=== PATIENT | female | born 1935 | race Caucasian/White ===

== ENCOUNTER 2018-06-17 18:14 | Emergency (ER) | payer MEDICARE, OTHER ==
[~2018-06-17] VITALS: Ht 154.9 cm; Wt 72.7 kg
[2018-06-17 19:17] LABS: BASO % 0.4 % (0.0-1.0); EOS # 0.1 10^3/uL (0.0-0.50); EOS % 0.9 % (0.0-3.0); HEMATOCRIT 38.4 % (36.0-47.0); HEMOGLOBIN 12.8 g/dl (12.0-15.5); LYMPH # 0.8 10^3/uL (1.5-4.5); LYMPH % 10.1 % (24.0-44.0); MEAN CORPUSCULAR HEMOGLOBIN 31.3 pg (27.0-33.0); MEAN CORPUSCULAR HGB CONC 33.3 g/dl (32.0-36.5); MEAN CORPUSCULAR VOLUME 93.9 fl (80.0-96.0); MONO # 0.5 10^3/uL (0.0-0.8); MONO % 6.7 % (0.0-5.0); NEUTROPHILS # 6.6 10^3/uL (1.8-7.7); NEUTROPHILS % 81.4 % (36.0-66.0); PLATELET COUNT, AUTOMATED 258 10^3/uL (150-450); RED BLOOD COUNT 4.09 10^6/uL (4.00-5.40); WHITE BLOOD COUNT 8.1 10^3/uL (4.0-10.0)
[2018-06-17 19:27] LABS: BLOOD UREA NITROGEN 16 MG/DL (7-18); CALCIUM LEVEL 8.9 MG/DL (8.8-10.2); CARBON DIOXIDE LEVEL 28 MEQ/L (21-32); CHLORIDE LEVEL 99 MEQ/L (98-107); CPK CREATINE PHOSPHOKINASE 95 U/L (26-192); CREATININE FOR GFR 0.79 MG/DL (0.55-1.30); GLOMERULAR FILTRATION RATE > 60.0 (>32); GLUCOSE, FASTING 119 MG/DL (70-100); MB/CK RELATIVE INDEX 2.63 (< OR =4); POTASSIUM SERUM 4.3 MEQ/L (3.5-5.1); SODIUM LEVEL 135 MEQ/L (136-145); TROPONIN I < 0.02 NG/ML (< 0.10)
[2018-06-17] MEDS: NITROGLYCERIN 0.4 MG SUBL TABLET SL PRN ×2 (20:25→20:31)
--- NOTE | 2018-06-17 20:25 | REP ---
Chest one-view HISTORY: Chest pain Comparison: 08/05/2011 The lungs are clear. The heart is normal in size. The pulmonary vasculature is normal in appearance. Impression: No acute disease. Electronically Signed by Justice Burrell MD 06/17/2018 08:17 P
[2018-06-17 20:31] VITALS: BP 148/74
[2018-06-17] MEDS ORDERED: GI COCKTAIL 50ML BTL(HYOSCYAMINE/MAALOX/LIDOCAINE VISCOUS)(1:3:1) PO ONE (20:45)
[2018-06-17 21:18] LABS: CPK CREATINE PHOSPHOKINASE 82 U/L (26-192); MB/CK RELATIVE INDEX 2.32 (< OR =4); TROPONIN I < 0.02 NG/ML (< 0.10)
[2018-06-17 22:11] VITALS: BP 156/74
--- NOTE | 2018-06-18 08:02 | ECGEPIP ---
Stationary ECG Study [facility] - ED Test Date: 2018-06-17 Pat Name: MIRIAM MOISE Department: Room: - Gender: F [employer] Penc[employer] Dipper: kaye : 1935 Requested By: Donnell Tineo Order Number: [id number] Reading MD: Donnell Russo Measurements Intervals [place] Rate: 73 P: 52 DC: 191 QRS: -8 QRSD: 91 T: 36 QT: 391 QTc: 431 Interpretive Statements SINUS RHYTHM SIMILAR TO 08/05/11 Electronically Signed On 06-18-2018 8:02:24 EST by Donnell Russo
== END 2018-06-17 22:19 | disposition home or self-care (01) ==
LOC: M ED 18:14
DX: I10 Essential (primary) hypertension (principal); Z86.73 Personal history of transient ischemic attack (TIA), and cerebral infarction without residual deficits; Z88.5 Allergy status to narcotic agent

== ENCOUNTER 2018-07-28 17:34 | Emergency (ER) | payer MEDICARE, OTHER ==
[~2018-07-28] VITALS: Ht 154.9 cm; Wt 72.7 kg
[2018-07-28] MEDS ORDERED: GI COCKTAIL 50ML BTL(HYOSCYAMINE/MAALOX/LIDOCAINE VISCOUS)(1:3:1) PO ONE (18:00)
[2018-07-28 18:47] LABS: BASO % 0.3 % (0.0-1.0); EOS # 0.1 10^3/uL (0.0-0.50); HEMATOCRIT 37.7 % (36.0-47.0); HEMOGLOBIN 12.4 g/dl (12.0-15.5); LYMPH # 0.9 10^3/uL (1.5-4.5); LYMPH % 13.1 % (24.0-44.0); MEAN CORPUSCULAR HEMOGLOBIN 31.2 pg (27.0-33.0); MEAN CORPUSCULAR HGB CONC 32.9 g/dl (32.0-36.5); MEAN CORPUSCULAR VOLUME 94.7 fl (80.0-96.0); MONO # 0.6 10^3/uL (0.0-0.8); MONO % 7.6 % (0.0-5.0); NEUTROPHILS # 5.6 10^3/uL (1.8-7.7); NEUTROPHILS % 77.3 % (36.0-66.0); PLATELET COUNT, AUTOMATED 271 10^3/uL (150-450); RED BLOOD COUNT 3.98 10^6/uL (4.00-5.40); WHITE BLOOD COUNT 7.2 10^3/uL (4.0-10.0)
[2018-07-28 19:12] LABS: ALBUMIN 3.8 GM/DL (3.2-5.2); ALT/SGPT 20 U/L (12-78); BILIRUBIN,DIRECT < 0.1 MG/DL (0.0-0.2); BILIRUBIN,TOTAL 0.2 MG/DL (0.2-1.0); BLOOD UREA NITROGEN 18 MG/DL (7-18); C REACTIVE PROTEIN QUANTITATIV < 0.30 MG/DL (0.00-0.30); CARBON DIOXIDE LEVEL 29 MEQ/L (21-32); CHLORIDE LEVEL 99 MEQ/L (98-107); CPK CREATINE PHOSPHOKINASE 97 U/L (26-192); GLOMERULAR FILTRATION RATE > 60.0 (>32); GLUCOSE, FASTING 134 MG/DL (70-100); MB/CK RELATIVE INDEX 1.96 (< OR =4); POTASSIUM SERUM 3.9 MEQ/L (3.5-5.1); SODIUM LEVEL 134 MEQ/L (136-145); TOTAL PROTEIN 7.4 GM/DL (6.4-8.2); TROPONIN I < 0.02 NG/ML (< 0.10)
--- NOTE | 2018-07-28 19:45 | REP ---
Portable chest, 06:06 p.m., single AP view, the patient upright: Comparison is 06/17/2018. Lung walsh are clear. Cardiac size is normal for portable positioning. The patient is rotated. There is a large hiatal hernia. Impression: No acute cardiopulmonary findings. Large hiatal hernia. Electronically Signed by William Moya MD 07/28/2018 07:36 P
[2018-07-28] MEDS ORDERED: ISOVUE-370 76% 100ML VIAL (Q9967) As Ordered ONE (20:01)
[2018-07-28] MEDS ORDERED: NS 1,000 ML IV ONE (20:30)
--- NOTE | 2018-07-28 21:04 | REPVR ---
EXAM: CT Head Without Contrast EXAM DATE/TIME: 07/28/2018 8:04 PM CLINICAL HISTORY: 83 years old, female; Signs and symptoms; Altered mental status/memory loss; Confusion or disorientation TECHNIQUE: Axial computed tomography images of the head/brain without contrast. All CT scans at this facility use at least one of these dose optimization techniques: automated exposure control; mA and/or kV adjustment per patient size (includes targeted exams where dose is matched to clinical indication); or iterative reconstruction. COMPARISON: No relevant prior studies available. FINDINGS: Brain: There is mild age-related parenchymal volume loss. White matter changes are demonstrated in the subcortical, centrum semiovale and periventricular white matter consistent with small vessel white matter angiopathic gliosis. Ventricles: Normal. No ventriculomegaly. Bones/joints: Unremarkable. No acute fracture. Sinuses: Visualized sinuses are unremarkable. No acute sinusitis. Mastoid air cells: Visualized mastoid air cells are unremarkable. No mastoid effusion. Soft tissues: Unremarkable. IMPRESSION: There is mild age-related parenchymal volume loss. White matter changes are demonstrated in the subcortical, centrum semiovale and periventricular white matter consistent with small vessel white matter angiopathic gliosis. Electronically signed by: Jericho Ellis On 07/28/2018 21:03:54 PM
--- NOTE | 2018-07-28 21:07 | REPVR ---
EXAM: CT Angiography Chest With Contrast EXAM DATE/TIME: 07/28/2018 8:04 PM CLINICAL HISTORY: 83 years old, female; Pain; Chest pain; Type not specified TECHNIQUE: Axial computed tomographic angiography images of the chest with intravenous contrast using CT angiography protocol. All CT scans at this facility use at least one of these dose optimization techniques: automated exposure control; mA and/or kV adjustment per patient size (includes targeted exams where dose is matched to clinical indication); or iterative reconstruction. Coronal and sagittal reformatted images were created and reviewed. MIP reconstructed images were created and reviewed. CONTRAST: 100 ml of ISOVUE 370 administered intravenously. COMPARISON: CR PORTABLE CHEST X-RAY 07/28/2018 6:05 PM FINDINGS: Pulmonary arteries: No pulmonary embolus. Aorta: The aorta demonstrates mild atherosclerotic calcification. No aortic dissection or aneurysm. Lungs: Normal. No consolidation. No masses. Pleural space: Normal. No pneumothorax. No pleural effusion. Heart: There is mild atherosclerotic calcification of the coronary arteries. Mediastinum: Moderate sized retrocardiac hiatal hernia. Gallbladder and bile ducts: Cholelithiasis. Lymph nodes: Unremarkable. No enlarged lymph nodes. Bones/joints: The spine demonstrates moderate degenerative changes. Soft tissues: Lipoma left subscapularis muscle. IMPRESSION: 1. No aortic dissection or aneurysm. 2. Moderate sized retrocardiac hiatal hernia. 3. No pulmonary embolus. Electronically signed by: Jericho Ellis On 07/28/2018 21:07:33 PM
--- NOTE | 2018-07-28 21:11 | REPVR ---
EXAM: CT Abdomen and Pelvis With Contrast EXAM DATE/TIME: 07/28/2018 8:04 PM CLINICAL HISTORY: 83 years old, female; Pain; Abdominal pain; Generalized TECHNIQUE: Axial computed tomography images of the abdomen and pelvis with intravenous contrast. All CT scans at this facility use at least one of these dose optimization techniques: automated exposure control; mA and/or kV adjustment per patient size (includes targeted exams where dose is matched to clinical indication); or iterative reconstruction. Coronal and sagittal reformatted images were created and reviewed. CONTRAST: 100 ml of ISOVUE 370 administered intravenously. COMPARISON: No relevant prior studies available. FINDINGS: Lower thorax: Moderate retrocardiac hiatal hernia. ABDOMEN: Liver: Normal. No mass. Gallbladder and bile ducts: Multiple gallstones are present. Also noted is thickening of the gallbladder wall, findings which may indicate the presence of acute cholecystitis. Pancreas: There is diffuse pancreatic atrophy. Spleen: Normal. No splenomegaly. Adrenals: Normal. No mass. Kidneys and ureters: Left renal cyst measures 5.4 x 2.1 cm. Stomach and bowel: There is increased feces throughout the colon consistent with constipation. Appendix: No evidence of appendicitis. PELVIS: Bladder: Unremarkable as visualized. Reproductive: There has been a hysterectomy. ABDOMEN and PELVIS: Intraperitoneal space: Normal. No free air. No significant fluid collection. Bones/joints: The spine demonstrates mild degenerative changes. Mild anterolisthesis of L4 on L5. Disc space narrowing at L5-S1. 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 Soft tissues: Small umbilical hernia. Vasculature: Normal. No abdominal aortic aneurysm. Lymph nodes: Normal. No enlarged lymph nodes. IMPRESSION: 1. Moderate retrocardiac hiatal hernia. 2. Multiple gallstones are present. Also noted is thickening of the gallbladder wall, findings which may indicate the presence of acute cholecystitis. 3. There is diffuse pancreatic atrophy. 4. Left renal cyst measures 5.4 x 2.1 cm. 5. There is increased feces throughout the colon consistent with constipation. 6. There has been a hysterectomy. Electronically signed by: Jericho Ellis On 07/28/2018 21:11:35 PM
[2018-07-28] MEDS ORDERED: SUCR1SS PO (22:13)
[2018-07-28] MEDS ORDERED: PANT40TA3 PO (22:13)
[2018-07-28] MEDS ORDERED: KEFL500C17 PO (22:13)
[2018-07-28 22:29] VITALS: BP 140/86
[2018-07-28] MEDS ORDERED: CEPHALEXIN 500 MG CAP PO ONE (22:30)
--- NOTE | 2018-07-29 00:52 | ECGEPIP ---
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
== END 2018-07-28 22:30 | disposition home or self-care (01) ==
LOC: M ED 17:34
DX: K29.70 Gastritis, unspecified, without bleeding (principal); K20.9 Esophagitis, unspecified; N39.0 Urinary tract infection, site not specified; K44.9 Diaphragmatic hernia without obstruction or gangrene; I10 Essential (primary) hypertension; Z86.73 Personal history of transient ischemic attack (TIA), and cerebral infarction without residual deficits; Z88.5 Allergy status to narcotic agent
CPT/HCPCS: 36415; 70450; 71045; 71275; 74177; 80048; 80076; 81001; 82550; 82553; 84484; 85025; 86140; 87086; 93005; 93041; 94760; 99284; Q9967

== ENCOUNTER → 2018-09-12 | Outpatient (REF) | payer MEDICARE, OTHER ==
[~2018-09-12] MED LIST: ASPI1TAB PO; ASPI325T PO; ASPI325T25 PO; ASPI81TA24 PO; CARA1TAB6 PO; CEFD1CAP8 PO; ELIQ5TAB PO; GABA-1171 PO; GABA-843 PO; HYDR50TA70 PO; HYOS0.374 PO; KEFL500C17 PO; LEVO25TA5 PO; LISI-542 PO; PANT40TA3 PO; SUCR1SS PO; SUCR1TA PO; SYNT50TA PO; VENL75TA2 PO
== END ==
LOC: M LAB REF 13:09
PROVIDERS: ATTEND Surgery
DX: K80.20 Calculus of gallbladder without cholecystitis without obstruction (principal)

== ENCOUNTER → 2018-09-30 | Outpatient (CLI) | payer MEDICARE, OTHER ==
[~2018-09-30] MED LIST changes: +ACET1TAB55 PO; +ASPI-1 PO; +ASPI-255 PO; -ASPI1TAB PO; -ASPI325T PO; -ASPI325T25 PO; +ASPI81TA26 PO; +AUGM500T34 PO; +CONRAY-43 43% 50ML VIAL (Q9960) As Ordered ONE
--- NOTE | 2018-09-30 16:33 | REP ---
CHOLANGIOGRAM The procedure was performed under the direct supervision of Dr. Marcelino. The images were reviewed with Dr. Marcelino. The patient had a cholecystostomy tube placed on 09/01/2018. Approximately 10 ml of Conray 43 was injected into the existing cholecystostomy tube. There is filling of an irregularly shaped gallbladder. There is no contrast seen in the cystic or common ducts. Impression: Contrast is seen filling an irregularly-shaped gallbladder. There is no contrast seen in the cystic or common ducts. 0.3 minutes of fluoroscopy time was utilized for this procedure. Reviewed by MICHELLE Crowley 09/30/2018 04:16 P Electronically Signed by Moody Marcelino MD 09/30/2018 04:30 P
== END ==
LOC: M RADPRO 12:12
PROVIDERS: ATTEND Surgery
DX: K81.0 Acute cholecystitis (principal); Z98.890 Other specified postprocedural states
CPT/HCPCS: 47531; Q9960

== ENCOUNTER 2018-11-01 05:51 | Observation (INO) | payer MEDICARE, OTHER ==
[~2018-11-01] VITALS: Ht 154.9 cm; Wt 71.6 kg
[~2018-11-01 05:51] MED LIST changes: -ACET1TAB55 PO; -AUGM500T34 PO; -CONRAY-43 43% 50ML VIAL (Q9960) As Ordered ONE
[2018-11-01] MEDS ORDERED: ceFAZolin SOD 1 GM in D5W MINI-BAG PLUS 50 ML IV ONE (06:00)
[2018-11-01] MEDS ORDERED: LR 1,000 ML IV ONE (06:00)
[2018-11-01] MEDS ORDERED: ROCURONIUM BROMIDE 50 MG/5 ML VIAL As Ordered ONE (06:44)
[2018-11-01] MEDS ORDERED: SUGAMMADEX SODIUM 500 MG/5 ML VIAL (BRIDION) As Ordered ONE (06:44)
[2018-11-01] MEDS ORDERED: LIDOCAINE 2% INJ 100 MG/5 ML SDV (FOR ANES.) As Ordered ONE (06:44)
[2018-11-01] MEDS ORDERED: PROPOFOL 200 MG/20 ML VIAL As Ordered ONE (06:44)
[2018-11-01] MEDS ORDERED: dexameTHASONE 4 MG/ML 1ML VIAL (J1100) As Ordered ONE (06:45)
[2018-11-01] MEDS ORDERED: ONDANSETRON 4MG/2ML VIAL (J2405) As Ordered ONE (06:45)
[2018-11-01] MEDS ORDERED: fentaNYL 250 MCG/5 ML INJECTION (J3010) As Ordered ONE (06:50)
[2018-11-01] MEDS ORDERED: BUPIVACAINE/EPIN 0.25% 30 ML VIAL As Ordered ONE (07:11)
[2018-11-01] MEDS ORDERED: GLUCAGON FOR INJ 1 MG VIAL (J1610) As Ordered ONE (07:12)
[2018-11-01] MEDS ORDERED: CONRAY-60 60% 50ML VIAL (Q9961) As Ordered ONE (07:12)
[2018-11-01] MEDS ORDERED: MIDAZOLAM INJ 2 MG/2 ML VIAL (J2250) As Ordered ONE (07:24)
[2018-11-01] MEDS ORDERED: ACETAMINOPHEN 1000MG 100ML IV BTL (OFIRMEV) (J0131 PER 10MG) As Ordered ONE (07:47)
[2018-11-01] MEDS ORDERED: ePHEDrine SULFATE 25 MG/5 ML(5MG/ML) SYRINGE As Ordered ONE ×2 (07:51→08:28)
[2018-11-01] MEDS ORDERED: KETAMINE HCL 200 MG/20 ML VIAL As Ordered ONE (07:58)
[2018-11-01] MEDS ORDERED: diphenhydrAMINE INJ 50MG/ML VIAL (J1200) As Ordered ONE (07:58)
[2018-11-01] MEDS ORDERED: PHENYLephrine HCL 500 MCG/5 ML (100MCG/ML) SYRINGE (J2370) As Ordered ONE ×2 (08:04→09:00)
[2018-11-01] MEDS ORDERED: BACITRACIN OINT 30GM As Ordered ONE (09:26)
[2018-11-01] MEDS ORDERED: PERCOCET 5MG/325MG TAB PO PRN (10:00)
[2018-11-01] MEDS ORDERED: fentaNYL 100 MCG/2 ML INJECTION (J3010) IV PRN (10:00)
[2018-11-01] MEDS ORDERED: NORCO, ANEXSIA 5/325MG TABLET (HYDROcodone/ACETAMINOPHEN) PO PRN ×2 (10:00→21:45)
[2018-11-01] MEDS ORDERED: METOCLOPRAMIDE INJ 10MG/2ML VIAL (J2765) IV PRN (10:00)
[2018-11-01] MEDS ORDERED: ONDANSETRON 4MG/2ML VIAL (J2405) IV PRN ×3 (10:00→21:45)
[2018-11-01] MEDS ORDERED: LR 1,000 ML IV SCH ×2 (10:00)
--- NOTE | 2018-11-01 10:29 | RO ---
DATE OF PROCEDURE: 11/01/2018 PREOPERATIVE DIAGNOSIS: History of cholecystitis, cholecystostomy tube placement. POSTOPERATIVE DIAGNOSIS: History of cholecystitis, cholecystostomy tube placement. PROCEDURE: Laparoscopic cholecystectomy. SURGEON: Dr. Deon Montes [employer]: ANESTHESIA: General endotracheal anesthesia. ESTIMATED BLOOD LOSS: 100 mL. FLUIDS: Crystalloid. BRIEF PROCEDURE SUMMARY: The patient was brought to the operating room and was given general anesthesia. After adequate anesthesia and preoperative antibiotics were given, the patient was prepped and draped in a sterile fashion. Next, a supraumbilical incision was made with skin knife. Blunt dissection was carried down to fascia. Veress needle placed into the abdominal cavity and insufflated to 15 mm of pressure and a dilating 10 mm trocar was placed under direct visualization. An epigastric and two lateral trocars were placed and the cholecystostomy tube could be seen going through some omentum into the gallbladder itself. This was left in place, although adhesions in this right upper quadrant were taken down with the hook cautery. Then the atraumatic grasper was used to grasp the top of the gallbladder/omentum and retract it superiorly. There was colon that had worked its way up to the area, but fortunately this was able to be peeled away quite nicely without undue problems. There was a great deal of omentum that was adherent along the right lateral aspect of the gallbladder which had to be transected in this area and right at the level of the gallbladder. Eventually this was mobilized. There was some oozing from the omentum which was controlled with some Endo clips. Once this was taken down, multiple additional adhesions were taken down in the right upper quadrant and this was omentum to the gallbladder and duodenum to the neck of the gallbladder as well. Eventually once dissection continued down inferiorly adequately, what was obvious was that there was the appropriate narrowing after a palpable stone was appreciated in the neck of the gallbladder. Work in this area was slow, but gradually we identified the neck of the gallbladder quite nicely and cystic artery could be seen medially. Once further dissection was performed, a good window behind the neck of the gallbladder was created. After a great deal of diligence, this tapered down into what appeared to be the cystic duct. No branches were coming off. Then I dissected up further onto the cystic plate area revealing no additional branches. Because of the location of the cystic artery and it medially and a little bit more superiorly on the neck gallbladder this was far enough away that I felt that I could transect the cystic duct and then be better able to visualize the cystic artery and dissect off surrounding tissue. Eventually at this point the cystic duct was clipped proximally and distally and transected. The gallbladder then was taken from the gallbladder bed using electrocautery. The gallbladder wall was extremely thickened and the gallbladder wall was fused to the liver bed itself. In this manner, after clipping the cystic artery, the gallbladder was entered. There was some turbid fluid which was aspirated out, removed and it was mostly mucus. Then multiple stones were seen and aspirated out with the suction device. Later on in the case, all visible stones were suctioned and removed. In any case, after opening up the gallbladder itself, it was felt that more trauma would occur to the liver bed than was necessary if I tried to develop a plane in the liver bed. Thus, the anterior two thirds of the gallbladder were removed in the posterior portion which revealed a somewhat intrahepatic gallbladder was left in place. The mucosa in this area was treated with electrocautery. The right upper quadrant was copiously irrigated until clear and all stones. The cystic duct clips were intact. The cystic artery clips were intact. The gallbladder had been placed in EndoCatch bag and brought out through the umbilicus. Once again the right upper quadrant was copiously irrigated additionally and revealed a clean dry area with no bleeding, no bile leak and overall no additional stones. The trocars were all removed under direct visualization. #0 Vicryl was used to close the fascia at the umbilicus. All incisions were closed with #4-0 Vicryl. Steri-Strips and dry sterile dressing was applied. The patient was awakened from anesthesia, extubated, and brought to the recovery room awake, alert and hemodynamic stable. Sponge and needle counts were correct times two.
[2018-11-01 21:09] VITALS: BP 154/69
[2018-11-01] MEDS ORDERED: ACETAMINOPHEN TAB 650MG DOSE (2X325MG) PO PRN (21:45)
[2018-11-01] MEDS ORDERED: ERTAPENEM SODIUM 1 GM in NS MINI-BAG PLUS 50 ML IV ONE (22:15)
[2018-11-01] MEDS: VENLAFAXINE 37.5 MG TAB PO SCH (22:58)
[2018-11-01] MEDS: HYOSCYAMINE SULFATE 0.125 MG SUBL TABLET PO SCH (22:58)
[2018-11-01] MEDS: hydrOXYzine 50 MG TAB PO SCH (22:58)
[2018-11-01] MEDS: GABAPENTIN 300 MG CAP PO SCH (22:59)
[2018-11-02] VITALS (8 sets, daily range): BP systolic 83–146; BP diastolic 45–67
[2018-11-02] MEDS: LEVOTHYROXINE 50MCG TABLET (0.05MG) PO SCH (05:32)
[2018-11-02] MEDS ORDERED: AUGM500T34 PO (08:47)
[2018-11-02] MEDS ORDERED: ACET1TAB55 PO (08:47)
[2018-11-02] MEDS: SIMETHICONE 80 MG CHEW TAB PO SCH ×4 (09:00→20:42)
[2018-11-02] MEDS: LISINOPRIL 5 MG TAB PO SCH (09:00)
[2018-11-02] MEDS: GABAPENTIN 300 MG CAP PO SCH ×3 (09:03→20:42)
[2018-11-02] MEDS: HYOSCYAMINE SULFATE 0.125 MG SUBL TABLET PO SCH ×2 (09:04→20:43)
[2018-11-02] MEDS: PANTOPRAZOLE 40MG TAB (PROTONIX) PO SCH (09:04)
[2018-11-02] MEDS: VENLAFAXINE 37.5 MG TAB PO SCH ×2 (09:04→20:43)
[2018-11-02 09:46] LABS: HEMATOCRIT 32.4 % (36.0-47.0); HEMOGLOBIN 10.9 g/dl (12.0-15.5); MEAN CORPUSCULAR HEMOGLOBIN 31.3 pg (27.0-33.0); MEAN CORPUSCULAR HGB CONC 33.6 g/dl (32.0-36.5); MEAN CORPUSCULAR VOLUME 93.1 fl (80.0-96.0); PLATELET COUNT, AUTOMATED 220 10^3/uL (150-450); RED BLOOD COUNT 3.48 10^6/uL (4.00-5.40); WHITE BLOOD COUNT 9.2 10^3/uL (4.0-10.0)
[2018-11-02] MEDS ORDERED: SENNA 8.6 MG TAB (SENOKOT) PO ONE (10:00)
[2018-11-02] MEDS: DOCUSATE SODIUM 100 MG CAP PO SCH ×2 (11:54→20:43)
[2018-11-02] MEDS: PIPERACILLIN/TAZOBACTAM SOD 3.375 GM in D5W MINI-BAG PLUS 50 ML IV SCH ×2 (17:13→21:17)
[2018-11-02] MEDS: hydrOXYzine 50 MG TAB PO SCH (20:43)
[2018-11-03] MEDS: PIPERACILLIN/TAZOBACTAM SOD 3.375 GM in D5W MINI-BAG PLUS 50 ML IV SCH ×4 (04:16→21:54)
[2018-11-03] MEDS: LEVOTHYROXINE 50MCG TABLET (0.05MG) PO SCH (05:22)
[2018-11-03 06:00] VITALS: BP 145/69
[2018-11-03 06:16] LABS: HEMATOCRIT 33.6 % (36.0-47.0); HEMOGLOBIN 11.1 g/dl (12.0-15.5); MEAN CORPUSCULAR HEMOGLOBIN 30.8 pg (27.0-33.0); MEAN CORPUSCULAR VOLUME 93.3 fl (80.0-96.0); PLATELET COUNT, AUTOMATED 231 10^3/uL (150-450); WHITE BLOOD COUNT 8.9 10^3/uL (4.0-10.0)
[2018-11-03 08:44] LABS: ALBUMIN 2.8 GM/DL (3.2-5.2); ALT/SGPT 22 U/L (12-78); BILIRUBIN,TOTAL 0.8 MG/DL (0.2-1.0); BLOOD UREA NITROGEN 13 MG/DL (7-18); CALCIUM LEVEL 8.6 MG/DL (8.8-10.2); CARBON DIOXIDE LEVEL 30 MEQ/L (21-32); CHLORIDE LEVEL 98 MEQ/L (98-107); GLOMERULAR FILTRATION RATE > 60.0 (>32); GLUCOSE, FASTING 101 MG/DL (70-100); MAGNESIUM LEVEL 1.7 MG/DL (1.8-2.4); POTASSIUM SERUM 3.8 MEQ/L (3.5-5.1); SODIUM LEVEL 133 MEQ/L (136-145); TOTAL PROTEIN 5.7 GM/DL (6.4-8.2)
--- NOTE | 2018-11-03 09:48 | IPN ---
DATE: 11/02/2018 The patient had undergone a laparoscopic cholecystectomy yesterday and actually did well, considering how terrible the gallbladder looked and overall the patient tolerated the procedure relatively well but postoperatively she was relatively sedated and she needed to spend the night with us this morning she is still rather sedated and this is similar to what she was well after she had her sepsis episode several months ago when she had the cholecystostomy tube placed. Her blood pressure is low but on the low side. She has a low grade temperature and thus we will and thus we checked a white count which appeared normal and over the morning her blood pressure came up quite nicely. I saw her later in the day several times and she seems to be coming out of the fog a little bit but not completely resolved at this time. I do feel that she needs to spend the night with us. PHYSICAL EXAMINATION: Her lungs are clear anteriorly although diminished at the bases bilaterally without significant wheezes or rhonchi. Abdomen is softly distended, tympanitic in the epigastric area but no evidence of peritoneal signs and her incisions look good. The Franck-Yip drain site / cholecystostomy tube site has a Band-Aid over the place and there is no evidence of cellulitis around this area. IMPRESSION AND PLAN 1. Patient's blood pressure is low I anticipate this is most likely secondary to poor by mouth intake overnight and her blood pressure medications. We held a blood pressure medication and she is resolving this. Anticipate will probably have to restart her blood pressure medication tomorrow as she increase her by mouth intake. 2. Mental status changes seems to be slowly improving. Will see how she is doing tomorrow morning if it is better than this might be anesthesia related. I anticipate that and then we can discharge him home. Her temperature given that it is a low grade temperature and not surprised with the inflammatory process associated with the gallbladder intraoperatively. We also cauterized the gallbladder bed which can contribute to some inflammatory changes. However without a significant white count elevation I anticipate this is mostly inflammatory. Will recheck her CBC tomorrow morning. Otherwise will keep her for the night and we will continue observing her at this point.
[2018-11-03] MEDS: VENLAFAXINE 37.5 MG TAB PO SCH ×2 (10:02→20:36)
[2018-11-03] MEDS: DOCUSATE SODIUM 100 MG CAP PO SCH ×2 (10:02→20:36)
[2018-11-03] MEDS: HYOSCYAMINE SULFATE 0.125 MG SUBL TABLET PO SCH ×2 (10:03→20:35)
[2018-11-03] MEDS: GABAPENTIN 300 MG CAP PO SCH ×3 (10:03→20:37)
[2018-11-03] MEDS: PANTOPRAZOLE 40MG TAB (PROTONIX) PO SCH (10:03)
[2018-11-03] MEDS: SIMETHICONE 80 MG CHEW TAB PO SCH ×4 (10:03→20:36)
--- NOTE | 2018-11-03 10:04 | REP ---
Clinical: Fever. Technique: Upright view of the chest with supine and upright views of the abdomen and pelvis. Findings: Frontal view of the chest demonstrates bibasilar atelectasis (right greater than left) and right pleural effusion. No free air below diaphragm to suspect pneumoperitoneum. Supine and upright views of the abdomen and pelvis demonstrate relatively nonspecific bowel gas pattern without obstruction or perforation. Evidence for prior cholecystectomy noted. Skeletal structures demonstrate osteopenia and degenerative changes. Impression: 1. Bibasilar atelectasis (right greater left) and right pleural effusion suggested. 2. Nonspecific bowel gas pattern. Electronically Signed by Jase Pompa MD 11/03/2018 09:56 A
[2018-11-03] MEDS: LISINOPRIL 5 MG TAB PO SCH (10:05)
[2018-11-03] MEDS: MAG SULF 1GM/100ML (MAG RUN) 1 GM in APPROPRIATE DILUENT 1 EA IV SCH ×2 (11:22→12:46)
--- NOTE | 2018-11-03 13:44 | HPEPDOC ---
General Date of Admission Date of Service: November 03, 2018 Chief Complaint The patient is a 83-year-old female admitted with a reason for visit of Symptomatic Gallstones. Source: Patient, Family Exam Limitations: Clinical conditions Severity: Mild Associated Symptoms: Denies Symptoms History of Present Illness Pt is a 83 yo female who has PMH of HTN, hyperlipidemia, bilateral pulmonary embolism, and cholecystitis s/p percutaneous drainage presented to [facility] with discomfort around the percutaneous drainage tube site [facility] and underwent laparoscopic cholecystectomy 2 days ago, and it was noted that pt immediately developed confusion. Pt's reported that at baseline she has no confusion and is A&OX3; reported that she has been progressively improving in mental status. Pt had initial cholecystitis a few months ago and had percutaneous drainage tube placement, and there was also confusion after the procedure as well. Pt has been walking with the walker as at baseline. 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 Home Medications Scheduled Amoxicillin/Potassium Clav (Augmentin 500-125 Tablet) 1 Each Tablet, 1 TAB PO BID Aspirin (Aspirin EC) 81 Mg Tab, 81 MG PO DAILY, (Reported) Gabapentin (Gabapentin) 300 Mg Cap, 300 MG PO TID, (Reported) Hydroxyzine HCl (Hydroxyzine HCl) 50 Mg Tab, 50 MG PO QPM, (Reported) TAKES AT DINNERTIME Hyoscyamine Sulfate (Hyoscyamine Sulfate ER) 0.375 Mg Tab, 0.375 MG PO BID, (Reported) Levothyroxine Sodium (Synthroid) 50 Mcg Tab, 50 MCG PO DAILY, (Reported) Lisinopril (Lisinopril) 5 Mg Tab, 5 MG PO DAILY, (Reported) Venlafaxine HCl (Venlafaxine HCl) 75 Mg Tab, 75 MG PO BID, (Reported) Scheduled PRN Acetaminophen (Acetaminophen) 325 Mg Tablet, 650 MG PO Q6HP PRN for PAIN Allergies Coded Allergies: clarithromycin (Verified Adverse Reaction, Intermediate, NAUSEA.VOMITING DIARRHEA, 11/01/18) FROM PCP [facility] codeine (Verified Adverse Reaction, Intermediate, vomiting, 11/01/18) Past Medical History Medical History HTN Hyperlipidemia Recurrent UTI B/l PE Cholecystitis Surgical History Appendectomy Shoulder surgery Social History * Smoker: Denies Alcohol: Denies Drugs: denies A-FIB/CHADSVASC A-FIB History Current/History of A-Fib/PAF?: No Review of Systems Constitutional: Reports: Fever; Denies: Chills Pulmonary: Denies: Dyspnea Cardiovascular: Denies: Chest Pain, Palpitations Gastrointestinal: Denies: Nausea, Vomiting, Abdominal Pain, Diarrhea, Hematochezia Genitourinary: Denies: Retention Neurological: Reports: Confusion, Other Symptoms (slurred speech which seems to be slightly worse compared to baseline); Denies: Numbness Psych: Reports: Other Psych (no agitation); Denies: Anger Physical Examination General Exam: Positive: Alert, No Acute Distress Eye Exam: Positive: Conjunctiva & lids normal; Negative: Sclera icteric ENT Exam: Positive: Atraumatic, Mucous membr. moist/pink Neck Exam: Positive: Supple Chest Exam: Positive: Clear to auscultation, Normal air movement; Negative: Rales, Rhonchi, Wheezing Heart Exam: Positive: Rate Normal, Regular Rhythm, Normal S1, Normal S2; Negative: Murmurs Abdomen Exam: Positive: Normal bowel sounds, Soft; Negative: Tenderness Skin Exam: Positive: Nl turgor and temperature Neuro Exam: Positive: Normal Speech (mild-mod slurred speech), Strength at 5/5 X4 ext, Cranial Nerves 3-12 NL Psych Exam: Positive: Other (A&O to name only); Negative: Oriented x 3 Vital Signs Vital Signs Date Time Temp Pulse Resp B/P (MAP) Pulse Ox O2 Delivery O2 Flow Rate FiO2 11/03/18 10:05 128/69 11/03/18 06:00 100.6 89 16 93 11/01/18 10:15 4 Laboratory Data Labs 24H Laboratory Tests 2 11/03/18 05:27: Anion Gap 5L, Glomerular Filtration Rate > 60.0, Blood Urea Nitrogen 13, Creatinine 0.80, Sodium Level 133L, Potassium Level 3.8, Chloride Level 98, Carbon Dioxide Level 30, Calcium Level 8.6L, Aspartate Amino Transf (AST/SGOT) 37, Alanine Aminotransferase (ALT/SGPT) 22, Alkaline Phosphatase 90, Total Bilirubin 0.8, Total Protein 5.7L, Albumin 2.8L, Magnesium Level 1.7L, Albumin/Globulin Ratio 0.97L 11/03/18 05:30: Nucleated Red Blood Cells % (auto) 0.0 11/03/18 08:28: Lactic Acid Level 0.8 11/03/18 08:35: CBC/BMP Laboratory Tests 11/03/18 05:27 Calcium Level 8.6 L, Aspartate Amino Transf (AST/SGOT) 37, Alanine Aminotransferase (ALT/SGPT) 22, Alkaline Phosphatase 90, Total Bilirubin 0.8, Total Protein 5.7 L, Albumin 2.8 L 11/03/18 05:30 Red Blood Count 3.60 L, Mean Corpuscular Volume 93.3, Mean Corpuscular Hemoglobin 30.8, Mean Corpuscular Hemoglobin Concent 33.0, Red Cell Distribution Width 13.4 Microbiology Microbiology 11/03/18 Blood Culture, Received Pending 11/03/18 Blood Culture, Received Pending DAVE PALM DO November 03, 2018 13:43
[2018-11-03 14:00] VITALS: BP 129/67
--- NOTE | 2018-11-03 14:23 | CR.PDOC ---
General Date of Consultation: November 03, 2018 Consultation REASON FOR CONSULTATION/CHIEF COMPLAINT: Confusion/altered mental status HISTORY OF PRESENT ILLNESS: Pt is a 83 yo female who has PMH of HTN, hyperlipidemia, bilateral pulmonary embolism, and cholecystitis s/p percutaneous drainage presented with abdominal pain presented to [facility] with abdominal pain who underwent laparoscopic cholecystectomy 2 days ago, and it was noted that pt immediately developed confusion. Pt's reported that at baseline she has no confusion and is A&OX3; reported that she has been progressively improving in mental status. Pt had initial cholecystitis a few months ago and had percutaneous drainage tube placement, and there was also confusion after the procedure as well. Pt has been walking with the walker as at baseline ALLERGIES: Please see below. HOME MEDICATIONS: Please see below. 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 Mother has a GI cancer that pt cannot remember. Denies any other significant family history SOCIAL HISTORY: Tobacco use:Denies ETOH: Denies Illicit drug use: Denies REVIEW OF SYSTEMS: Limited ROS was able to be obtained d/t pt mental status CONSTITUTIONAL: Denies fever or chills. Denies any complaints CARDIOVASCULAR: Denies chest pain or palpitations RESPIRATORY: Denies SOB GENITOURINARY: Denies urinary retention or hematuria GASTROINTESTINAL: Denies nausea, vomiting, abdominal pain, or diarrhea NEUROLOGICAL: Decreased mental state compared to baseline PSYCHIATRIC: No agitation. PHYSICAL EXAMINATION: VITAL SIGNS: Please see below. GENERAL APPEARANCE: Alert and awake. Lying in bed without acute distress HEENT: Normocephalic, atraumatic. Slurred speech w/o obvious dysphagia noted. RESPIRATORY: CTA b/l, no rales, wheezing, or rhonchi CARDIOVASCULAR: RRR, no murmur, normal S1 and S2 ABDOMEN: Soft, bowel sound aus in all 4 quadrants, no guarding, distention, or rebound tenderness EXTREMITIES: Strength+5/5 in all 4 extremities. B/l radial pulses equal NEUROLOGICAL: CN2-12 grossly intact except for possibly CN7 as pt has slurred speech. A&O to name only PSYCHIATRIC: Appropriate to situation. NO agitation observed LABORATORY DATA: Please see below. ASSESSMENT/PLAN: 1. Confusion 2/2 postsurgical delirium, possibly 2/2 worsening of underlying dementia, less likely CVA - Cholecystectomy 2 days prior and family reported to be gradually improving; no agitation reported. - Hold home med Hydroxyzine at this time. - No focal neurological deficit to suggest a CT at this time - Start acapella and incentive spirometry. No urinary symptoms noted. - Pt has low grade fever peak 100.6. Lactic acid wnl. Less likely but r/o infectious etiology; blood cx and procalcitonin pending. - Cont acetaminophen PRN 2. Cholecystitis - s/p percutaneous drainage. Underwent cholecystectomy 2 days prior - Cont Zosyn - Pt denies any abdominal pain, N/V. Low grade fever. Cont acetaminophen PRN 3. HTN -Cont home med Lisinopril. BP roughly wnl 4. Hypothyroidism -Cont home med levothyroxine 5. Dysphagia - PMH of dysphagia noted to be likely d/t cricopharyngeal muscle dysfunction - Slurred speech also present; reported to be worse than baseline - Swallow eval ordered 6. Peripheral neuropathy - Cont home med Gabapentin 7. Depression - Cont home med Venlafaxine 8. DVT prophylaxis - Will discuss with surgery about starting Heparin Vital Signs/I&O Vital Signs Date Time Temp Pulse Resp B/P (MAP) Pulse Ox O2 Delivery O2 Flow Rate FiO2 11/03/18 10:05 128/69 11/03/18 06:00 100.6 89 16 93 11/01/18 10:15 4 I&O- Last 24 Hours up to 6 AM 11/03/18 06:00 Intake Total 660 ml Output Total 0 ml Balance 660 ml Laboratory Data Labs 24H Laboratory Tests 2 11/03/18 05:27: Anion Gap 5L, Glomerular Filtration Rate > 60.0, Blood Urea Nitrogen 13, Creatinine 0.80, Sodium Level 133L, Potassium Level 3.8, Chloride Level 98, Carbon Dioxide Level 30, Calcium Level 8.6L, Aspartate Amino Transf (AST/SGOT) 37, Alanine Aminotransferase (ALT/SGPT) 22, Alkaline Phosphatase 90, Total Bilirubin 0.8, Total Protein 5.7L, Albumin 2.8L, Magnesium Level 1.7L, Albumin/Globulin Ratio 0.97L 11/03/18 05:30: Nucleated Red Blood Cells % (auto) 0.0 11/03/18 08:28: Lactic Acid Level 0.8 11/03/18 08:35: CBC/BMP Laboratory Tests 11/03/18 05:27 Calcium Level 8.6 L, Aspartate Amino Transf (AST/SGOT) 37, Alanine Aminotransferase (ALT/SGPT) 22, Alkaline Phosphatase 90, Total Bilirubin 0.8, Total Protein 5.7 L, Albumin 2.8 L 11/03/18 05:30 Red Blood Count 3.60 L, Mean Corpuscular Volume 93.3, Mean Corpuscular Hemoglobin 30.8, Mean Corpuscular Hemoglobin Concent 33.0, Red Cell Distribution Width 13.4 Microbiology Microbiology 11/03/18 Blood Culture, Received Pending 11/03/18 Blood Culture, Received Pending Allergies Coded Allergies: clarithromycin (Verified Adverse Reaction, Intermediate, NAUSEA.VOMITING DIARRHEA, 11/01/18) FROM PCP [facility] codeine (Verified Adverse Reaction, Intermediate, vomiting, 11/01/18) Home Medications Scheduled Amoxicillin/Potassium Clav (Augmentin 500-125 Tablet) 1 Each Tablet, 1 TAB PO BID for 7 Days, #14 Aspirin (Aspirin EC) 81 Mg Tab, 81 MG PO DAILY, (Reported) Gabapentin (Gabapentin) 300 Mg Cap, 300 MG PO TID, (Reported) Hydroxyzine HCl (Hydroxyzine HCl) 50 Mg Tab, 50 MG PO QPM, (Reported) TAKES AT DINNERTIME Hyoscyamine Sulfate (Hyoscyamine Sulfate ER) 0.375 Mg Tab, 0.375 MG PO BID, (Reported) Levothyroxine Sodium (Synthroid) 50 Mcg Tab, 50 MCG PO DAILY, (Reported) Lisinopril (Lisinopril) 5 Mg Tab, 5 MG PO DAILY, (Reported) Venlafaxine HCl (Venlafaxine HCl) 75 Mg Tab, 75 MG PO BID, (Reported) Scheduled PRN Acetaminophen (Acetaminophen) 325 Mg Tablet, 650 MG PO Q6HP PRN for PAIN, #60 GME ATTESTATION GME ATTESTATION My faculty preceptor for this patient encounter was physically present during the encounter and was fully available. All aspects of the patient interview, examination, medical decision making process, and medical care plan development were reviewed and approved by the faculty preceptor. The faculty preceptor is aware and concurs with the plan as stated in the body of this note and will attest to such by his/her cosignature. ATTENDING NOTE I, Evaristo Mccoy, have both independently examined this patient as well as reviewed the documentation. I have discussed in detail with the resident the findings and plan of treatment as documented by the resident. I agree with their findings and treatment plan. I will continue to follow the patient and offer further guidance to the patients care as necessary during this hospital stay. DAVE PALM DO November 03, 2018 14:23 EVARISTO MCCOY MD November 03, 2018 16:21
--- NOTE | 2018-11-03 16:41 | REP ---
CT Head without contrast HISTORY: Slurred speech COMPARISON: 08/31/2018 Areas of decreased attenuation are present in the periventricular white matter. This represents small-vessel ischemic disease. There is no intraparenchymal hemorrhage, acute infarct, mass or midline shift. The ventricular system and cortical sulci as well as subarachnoid space in the posterior fossa are dilated consistent with mild volume loss. There is no extra cerebral collection. There is no fracture. The visualized sinuses are clear. IMPRESSION: 1. Small vessel ischemic disease. 2. Mild volume loss. Electronically Signed by Justice Burrell MD 11/03/2018 04:33 P
--- NOTE | 2018-11-03 17:54 | NUR ---
A clinical swallow assessment was conducted in the evening on 11/03/18. Based on the results of this evaluation the clinician recommends a regular diet with thin liquids. There were no signs/symptoms of aspiration/penetration on any trialed consistency. She did present with mild oral weakness and prolonged mastication, but she was able to safely chew and swallow all solid foods. During the evaluation the clinician educated the patient and her family on safe feeding strategies to maximize safety and decrease risk of choking/aspiration. The clinician recommends at least one follow up session to help implement and provide continued education on safe feeding strategies. Addendum: 11/03/18 at 1757 by KENYA BRANDON Amended: Links added.
--- NOTE | 2018-11-03 20:43 | REPVR ---
EXAM: MR Head Without Contrast EXAM DATE/TIME: 11/03/2018 4:54 PM CLINICAL HISTORY: 83 years old, female; Signs and symptoms; Speech disturbance; Slurred speech; Additional info: Increased slurred speech TECHNIQUE: Imaging protocol: MR of the head without contrast. COMPARISON: MRA BRAIN W/O CONTRAST 11/03/2018 7:05 PM FINDINGS: Brain: No acute infarct identified on the diffusion weighted imaging. No parenchymal hemorrhage. The brain demonstrates mild generalized volume loss. Patchy foci of increased signal intensity in the deep and subcortical white matter on the T2-weighted imaging most likely representing chronic small vessel ischemic change. No significant white matter disease for the patient's age. Ventricles: The ventricles appear mildly enlarged in keeping with volume loss. Bones/joints: Unremarkable. Soft tissues: Normal. Sinuses: Normal as visualized. No acute sinusitis. Mastoid air cells: Normal as visualized. No mastoid effusion. Orbits: Unremarkable. IMPRESSION: No evidence of acute infarct. Electronically signed by: Mariana Kemp On 11/03/2018 20:42:44 PM
--- NOTE | 2018-11-03 20:48 | REPVR ---
EXAM: MR Angiogram Head Without Contrast, Arteries EXAM DATE/TIME: 11/03/2018 4:53 PM CLINICAL HISTORY: 83 years old, female; Signs and symptoms; Speech disturbance; Slurred speech; Additional info: Increased speech from baseline TECHNIQUE: Imaging protocol: MR angiogram head without contrast. Exam focused on the arteries. COMPARISON: MRI-Brain without Contrast 08/31/2018 8:58 AM FINDINGS: Right internal carotid artery: Unremarkable. Intracranial segment is patent with no significant stenosis. No aneurysm. 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 Patent. Right middle cerebral artery: Unremarkable. No occlusion or significant stenosis. No aneurysm. Right posterior cerebral artery: Unremarkable. No occlusion or significant stenosis. No aneurysm. Right vertebral artery: Unremarkable. No occlusion or significant stenosis. No aneurysm. Left internal carotid artery: There is a 2.5 mm medially directed outpouching from the cavernous segment of the left ICA consistent with an aneurysm. Patent. Left anterior cerebral artery: Unremarkable. No occlusion or significant stenosis. No aneurysm. Left middle cerebral artery: Unremarkable. No occlusion or significant stenosis. No aneurysm. Left posterior cerebral artery: Patent. The left [employer] REPRESENTATIVE demonstrates a mild short segment stenosis in the P1 segment. Left vertebral artery: Unremarkable. No occlusion or significant stenosis. No aneurysm. Basilar artery: Unremarkable. No occlusion or significant stenosis. No aneurysm. IMPRESSION: 1. No major proximal vessel branch occlusion seen. 2. 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 Electronically signed by: Mariana Kemp On 11/03/2018 20:47:46 PM
[2018-11-03 22:00] VITALS: BP 123/60
[2018-11-04] MEDS: PIPERACILLIN/TAZOBACTAM SOD 3.375 GM in D5W MINI-BAG PLUS 50 ML IV SCH ×2 (05:13→09:03)
[2018-11-04] MEDS: LEVOTHYROXINE 50MCG TABLET (0.05MG) PO SCH (05:13)
[2018-11-04 06:00] VITALS: BP 140/70
[2018-11-04 07:00] LABS: BASO % 0.1 % (0.0-1.0); EOS # 0.2 10^3/uL (0.0-0.50); EOS % 2.8 % (0.0-3.0); HEMATOCRIT 31.1 % (36.0-47.0); HEMOGLOBIN 10.4 g/dl (12.0-15.5); LYMPH # 1.3 10^3/uL (1.5-4.5); LYMPH % 19.5 % (24.0-44.0); MEAN CORPUSCULAR HEMOGLOBIN 30.4 pg (27.0-33.0); MEAN CORPUSCULAR HGB CONC 33.4 g/dl (32.0-36.5); MEAN CORPUSCULAR VOLUME 90.9 fl (80.0-96.0); MONO # 0.7 10^3/uL (0.0-0.8); MONO % 10.7 % (0.0-5.0); NEUTROPHILS # 4.5 10^3/uL (1.8-7.7); NEUTROPHILS % 66.5 % (36.0-66.0); PLATELET COUNT, AUTOMATED 223 10^3/uL (150-450); RED BLOOD COUNT 3.42 10^6/uL (4.00-5.40); WHITE BLOOD COUNT 6.8 10^3/uL (4.0-10.0)
[2018-11-04 07:24] LABS: ALBUMIN 2.7 GM/DL (3.2-5.2); ALT/SGPT 17 U/L (12-78); BILIRUBIN,TOTAL 0.8 MG/DL (0.2-1.0); BLOOD UREA NITROGEN 11 MG/DL (7-18); CALCIUM LEVEL 8.5 MG/DL (8.8-10.2); CARBON DIOXIDE LEVEL 29 MEQ/L (21-32); CHLORIDE LEVEL 98 MEQ/L (98-107); CREATININE FOR GFR 0.74 MG/DL (0.55-1.30); GLOMERULAR FILTRATION RATE > 60.0 (>32); GLUCOSE, FASTING 104 MG/DL (70-100); MAGNESIUM LEVEL 2.1 MG/DL (1.8-2.4); POTASSIUM SERUM 3.7 MEQ/L (3.5-5.1); SODIUM LEVEL 134 MEQ/L (136-145); TOTAL PROTEIN 5.6 GM/DL (6.4-8.2)
--- NOTE | 2018-11-04 09:00 | REP ---
CAROTID ULTRASOUND: Real-time ultrasound evaluation and duplex Doppler interrogation of the extracranial carotid vasculature is performed. There is mild plaquing and narrowing in both carotid bulbs extending into the internal and external carotid arteries. Luminal narrowing is less than 50%. There is no evidence of hemodynamically significant stenosis of either internal carotid artery. Normal flow velocities are seen. The vertebral arteries demonstrate normal direction of flow. RIGHT LEFT Peak systolic velocity ICA 68.0 cm/s 56.4 cm/s End diastolic velocity ICA 14.2 cm/s 19.3 cm/s Peak systolic velocity CCA 96.6 cm/s 73.4 cm/s Peak systolic velocity ECA 78.5 cm/s 62.6 cm/s ICA/CCA ratio 0.7 0.77 IMPRESSION: Bilateral luminal narrowing of the internal carotid arteries less than 50%. No evidence of hemodynamically significant stenosis. Electronically Signed by William Mak MD 11/04/2018 08:53 A
[2018-11-04] MEDS: DOCUSATE SODIUM 100 MG CAP PO SCH (09:01)
[2018-11-04] MEDS: SIMETHICONE 80 MG CHEW TAB PO SCH (09:01)
[2018-11-04 09:02] VITALS: BP 140/70
[2018-11-04] MEDS: HYOSCYAMINE SULFATE 0.125 MG SUBL TABLET PO SCH (09:02)
[2018-11-04] MEDS: PANTOPRAZOLE 40MG TAB (PROTONIX) PO SCH (09:02)
[2018-11-04] MEDS: GABAPENTIN 300 MG CAP PO SCH (09:02)
[2018-11-04] MEDS: LISINOPRIL 5 MG TAB PO SCH (09:02)
[2018-11-04] MEDS: VENLAFAXINE 37.5 MG TAB PO SCH (09:02)
--- NOTE | 2018-11-04 11:05 | IPNPDOC ---
Text Note Date of Service The patient was seen on 11/04/18. NOTE REASON FOR CONSULTATION/CHIEF COMPLAINT: Confusion/altered mental status HISTORY OF PRESENT ILLNESS: Pt is a 83 yo female who has PMH of HTN, hyperlipidemia, bilateral pulmonary embolism, and cholecystitis s/p percutaneous drainage presented with abdominal pain presented to [facility] with abdominal pain who underwent laparoscopic cholecystectomy 2 days ago, and it was noted that pt immediately developed confusion. Pt's reported that at baseline she has no confusion and is A&OX3; reported that she has been progressively improving in mental status. Pt had initial cholecystitis a few months ago and had percutaneous drainage tube placement, and there was also confusion after the procedure as well. Pt has been walking with the walker as at baseline. Patient is examined at bedside with family member in room. It was noted that her mental status has improved compared to yesterday, but family said it is not back at baseline yet as she is confused occasionally. She still has slurred speech, but no dysphagia noted. Family confirmed that they were told she had total of 2 episodes of TIA in 2017 and 2018 at [place]; still reported that slurred speech were present since then. Pt reported RUQ mild constant abdominal pain 2/10 that she feels it's deep instead of superficial; started around supper time but unrelated to food. Denies any headache, nausea, vomiting, weakness, or numbness REVIEW OF SYSTEMS: CONSTITUTIONAL: Denies fever or chills. Denies any complaints CARDIOVASCULAR: Denies chest pain or palpitations RESPIRATORY: Denies SOB GASTROINTESTINAL: Denies nausea, vomiting, or diarrhea. Mild RUQ constant abdominal pain NEUROLOGICAL: Decreased mental state compared to baseline, improving PSYCHIATRIC: No agitation. PHYSICAL EXAMINATION: VITAL SIGNS: Please see below. GENERAL APPEARANCE: Alert and awake. Lying in bed without acute distress HEENT: Normocephalic, atraumatic. Slurred speech w/o obvious dysphagia noted. RESPIRATORY: CTA b/l, no rales, wheezing, or rhonchi CARDIOVASCULAR: RRR, no murmur, normal S1 and S2 ABDOMEN: Soft, bowel sound aus in all 4 quadrants, no guarding, distention, or rebound tenderness EXTREMITIES: B/l radial pulses equal NEUROLOGICAL: CN2-12 grossly intact except for possibly CN7 as pt has slurred speech. A&OX3 PSYCHIATRIC: Appropriate to situation. No agitation observed LABORATORY DATA: Please see below. ASSESSMENT/PLAN: 1. Confusion 2/2 postsurgical delirium, possibly 2/2 worsening of underlying dementia, unlikely 2/2 transient ischemic attack, unlikely 2/2 cerebrovascular accident - Confusion improving, pt now A&OX3. Occasional intermittent confusion but pt noted to be improving - Cholecystectomy 3 days prior and family reported to be gradually improving; no agitation reported. - Pt home med Hydroxyzine was held, reported slept well last night. Pt may resume hydroxyzine upon discharge, and follow up with PCP for meds change if indicated - No focal neurological deficit to suggest a CT at this time - Start acapella and incentive spirometry. No urinary symptoms noted. - Pt had low grade fever peak 100.6; resolved. Lactic acid wnl and blood cx no growth X 24 hr; procalcitonin unremarkable. - Cont acetaminophen PRN 2. Cholecystitis - s/p percutaneous drainage. Underwent cholecystectomy 3 days prior - On IV Zosyn. Pt was discharged per surgery team and will continue Augmentin BID for 7 days as outpt - Pt denies any abdominal pain, N/V, fever/chills. Pt will be discharged with outpt Acetaminophen PRN 3. HTN -Cont home med Lisinopril. BP roughly wnl 4. Hypothyroidism -Cont home med levothyroxine 5. Dysphagia - PMH of dysphagia noted to be likely d/t cricopharyngeal muscle dysfunction. Pt denies dysphagia - Slurred speech also present; reported to be mildly worse than baseline - Swallow eval and recommended regular diet 6. Peripheral neuropathy - Cont home med Gabapentin 7. Depression - Cont home med Venlafaxine 8. DVT prophylaxis - As per surgical team Disposition: - Anticipate discharge home today A-FIB/CHADSVASC A-FIB History Current/History of A-Fib/PAF?: No VS,Fishbone, I+O VS, Fishbone, I+O Laboratory Tests 11/04/18 06:22 Red Blood Count 3.42 L, Mean Corpuscular Volume 90.9, Mean Corpuscular Hemoglobin 30.4, Mean Corpuscular Hemoglobin Concent 33.4, Red Cell Distribution Width 13.2, Neutrophils (%) (Auto) 66.5 H, Lymphocytes (%) (Auto) 19.5 L, Monocytes (%) (Auto) 10.7 H, Eosinophils (%) (Auto) 2.8, Basophils (%) (Auto) 0.1, Neutrophils # (Auto) 4.5, Lymphocytes # (Auto) 1.3 L, Monocytes # (Auto) 0.7, Eosinophils # (Auto) 0.2, Basophils # (Auto) 0.0, Calcium Level 8.5 L, Aspartate Amino Transf (AST/SGOT) 24, Alanine Aminotransferase (ALT/SGPT) 17, Alkaline Phosphatase 85, Total Bilirubin 0.8, Total Protein 5.6 L, Albumin 2.7 L Vital Signs Date Time Temp Pulse Resp B/P (MAP) Pulse Ox O2 Delivery O2 Flow Rate FiO2 11/04/18 09:02 140/70 11/04/18 06:00 99.5 77 18 95 11/01/18 10:15 4 I&O- Last 24 Hours up to 6 AM 11/04/18 06:00 Intake Total 1400 ml Output Total 50 ml Balance 1350 ml GME ATTESTATION GME ATTESTATION My faculty preceptor for this patient encounter was physically present during the encounter and was fully available. All aspects of the patient interview, examination, medical decision making process, and medical care plan development were reviewed and approved by the faculty preceptor. The faculty preceptor is aware and concurs with the plan as stated in the body of this note and will attest to such by his/her cosignature. ATTENDING NOTE I, Evaristo Mccoy, have both independently examined this patient as well as reviewed the documentation. I have discussed in detail with the resident the findings and plan of treatment as documented by the resident. I agree with their findings and treatment plan. I will continue to follow the patient and offer further guidance to the patients care as necessary during this hospital stay. DAVE PALM DO November 04, 2018 11:05 EVARISTO MCCOY MD November 04, 2018 15:56
== END 2018-11-04 13:05 | disposition home or self-care (01) ==
LOC: M SDC 05:51 → M MS5PR 05:52 → M SDC 21:07 → M MS5PR 21:11 → UNDOADMOB 11-04 11:07 → M MS5PR 11-04 11:07 → M SDC 11-04 11:25 → UNDODISOB 11-04 13:05 → M MS5PR 11-04 13:05
PROVIDERS: ADMIT Surgery; ATTEND Surgery
DX: K80.18 Calculus of gallbladder with other cholecystitis without obstruction (principal); I10 Essential (primary) hypertension; E78.5 Hyperlipidemia, unspecified; E03.9 Hypothyroidism, unspecified; K44.9 Diaphragmatic hernia without obstruction or gangrene; K58.8 Other irritable bowel syndrome; K21.9 Gastro-esophageal reflux disease without esophagitis; Z86.73 Personal history of transient ischemic attack (TIA), and cerebral infarction without residual deficits; F41.9 Anxiety disorder, unspecified; F32.9 Major depressive disorder, single episode, unspecified; Z79.82 Long term (current) use of aspirin; Z92.3 Personal history of irradiation; Z79.899 Other long term (current) drug therapy; R47.81 Slurred speech; I67.1 Cerebral aneurysm, nonruptured
CPT/HCPCS: 36415; 47562; 70450; 70544; 70551; 74021; 80053; 83605; 83735; 84145; 85025; 85027; 87040; 88304; 92526; 92610; 93880; 96374; 96376; 97161; 97530; G0378; J0131; J0690; J1100; J1200; J1335; J2250; J2370; J2405; J2543; J3010; J3475

== ENCOUNTER 2024-12-21 22:54 | Observation (INO) | payer MEDICARE, OTHER ==
[~2024-12-21] VITALS: Ht 152.4 cm; Wt 55.0 kg
[~2024-12-21 22:54] MED LIST changes: +ACET1TAB55 PO; +AUGM500T34 PO; -CEFD1CAP8 PO; +CEFD1CAP9 PO; +DOCU100C16 PO; +GABA-1172 PO; -GABA-843 PO; +HYOS0.3723 PO; -HYOS0.374 PO; +LIFI1DRO4; -LISI-542 PO; +LISI5TAB11 PO; +PANT40TA29 PO; -PANT40TA3 PO
[2024-12-21 23:29] LABS: BASO # 0.0 10^3/uL (0.0-0.2); BASO % 0.2 % (0.0-1.0); EOS # 0.1 10^3/uL (0.0-0.5); EOS % 0.7 % (0.0-3.0); LYMPH # 1.8 10^3/uL (1.5-5.0); LYMPH % 13.7 % (24.0-44.0); MONO # 1.0 10^3/uL (0.0-0.8); MONO % 7.5 % (2.0-8.0); NEUTROPHILS # 10.4 10^3/uL (1.5-8.5); NEUTROPHILS % 77.2 % (36.0-66.0); PLATELET COUNT, AUTOMATED 254 10^3/uL (150-450)
[2024-12-21 23:52] LABS: ALT/SGPT 20 U/L (7.0-40); AST/SGOT 36 U/L (<34); CK-MB VALUE MASS 4.7 NG/ML (<3.6)
[2024-12-21 23:55] LABS: CPK CREATINE PHOSPHOKINASE 116 U/L (34-145); INR 0.98; MB/CK RELATIVE INDEX 4.05 (< OR =4)
[2024-12-22 01:22] LABS: VENOUS BASE EXCESS -1.5 (-2.0-2.0); VENOUS HCO3 26.0 MMOL/L (23.0-27.0); VENOUS O2 SATURATION 59.4 % (60.0-80.0); VENOUS PARTIAL PRESSURE CO2 57.6 mmHg (38.0-50.0); VENOUS PARTIAL PRESSURE O2 32.8 mmHg (30.0-50.0); VENOUS PH 7.273 UNITS (7.330-7.430); VENOUS STANDARD HCO3 22.5 MMOL/L; VENOUS TOTAL CO2 27.8 MMOL/L (24.0-28.0)
[2024-12-22 01:34] LABS: CALCIUM LEVEL 8.6 MG/DL (8.3-10.6); CARBON DIOXIDE LEVEL 28.0 MMOL/L (20-31); CHLORIDE LEVEL 101.0 MMOL/L (98-107); CK-MB VALUE MASS 5.6 NG/ML (<3.6); CPK CREATINE PHOSPHOKINASE 123.0 U/L (34-145); CREATININE FOR GFR 1.01 MG/DL (0.55-1.30); GLOMERULAR FILTRATION RATE 53.9 (>32); MB/CK RELATIVE INDEX 4.55 (< OR =4); POTASSIUM SERUM 4.3 MMOL/L (3.5-5.1); SODIUM LEVEL 138.0 MMOL/L (136-145)
[2024-12-22] MEDS: NS (Normal Saline) 0.9% 1,000 ML IV ONE (03:16)
[2024-12-22] MEDS: NS 500 ML IV ONE (03:17)
[2024-12-22 03:51] LABS: KETONE, URINE AUTO RFX NEGATIVE (NEGATIVE); LEUKOCYTE ESTERASE UR AUTO RFX NEGATIVE (NEGATIVE); MUCUS, URINE RFX SMALL (NEGATIVE); NITRITE, URINE AUTO RFX NEGATIVE (NEGATIVE); RBC, URINE AUTO RFX 1 /HPF (0-3); SQUAM EPITHELIAL CELL UR AURFX 1 /HPF (0-6); WBC, URINE AUTO RFX 3 /HPF (0-3)
[2024-12-22 04:17] LABS: CK-MB VALUE MASS 7.4 NG/ML (<3.6); CPK CREATINE PHOSPHOKINASE 146.0 U/L (34-145); MB/CK RELATIVE INDEX 5.06 (< OR =4)
[2024-12-22] MEDS: SODIUM BICARBONATE 8.4% INJ 50ML SYRINGE IV STA (05:19)
[2024-12-22] MEDS: CEFEPIME HCL 2 GM in DEXTROSE 5% (D5W) ADV/MINI-BAG 50 ML IV ONE (06:03)
[2024-12-22] MEDS ORDERED: ISOVUE-370 76% 100 ML VIAL As Ordered ONE (06:18)
[2024-12-22 06:35] LABS: FREE T4 1.01 NG/DL (0.89-1.76)
[2024-12-22] MEDS ORDERED: LR 1,000 ML IV SCH (06:45)
[2024-12-22] MEDS ORDERED: CEFTAROLINE FOSAMIL 600 MG in DEXTROSE 5% (D5W) ADV/MINI-BAG 50 ML IV SCH (07:05)
[2024-12-22] MEDS: LEVOTHYROXINE 75 MCG TABLET (0.075 MG) PO SCH (07:44)
[2024-12-22] MEDS: LR 1,000 ML IV ONE (07:44)
[2024-12-22] MEDS ORDERED: REST0.05 OU (08:05)
[2024-12-22] MEDS ORDERED: HOME MED LIST COMPLETE! XX SCH (08:05)
[2024-12-22] MEDS ORDERED: LISI10TA22 PO (08:05)
[2024-12-22 08:22] LABS: IONIZED CALCIUM 4.5 MG/DL (4.5-5.3)
[2024-12-22 08:38] LABS: BASO # 0.0 10^3/uL (0.0-0.2); BASO % 0.2 % (0.0-1.0); EOS # 0.0 10^3/uL (0.0-0.5); EOS % 0.1 % (0.0-3.0); LYMPH # 1.0 10^3/uL (1.5-5.0); LYMPH % 10.7 % (24.0-44.0); MONO # 0.7 10^3/uL (0.0-0.8); MONO % 7.9 % (2.0-8.0); NEUTROPHILS # 7.2 10^3/uL (1.5-8.5); NEUTROPHILS % 80.5 % (36.0-66.0); PLATELET COUNT, AUTOMATED 234 10^3/uL (150-450)
[2024-12-22 08:43] LABS: ERYTHROCYTE SEDIMENTATION RATE 1 mm/hr (0-30)
[2024-12-22 08:58] LABS: CK-MB VALUE MASS 7.5 NG/ML (<3.6)
[2024-12-22 09:01] LABS: C REACTIVE PROTEIN QUANTITATIV < 0.50 MG/DL (<1.0); CPK CREATINE PHOSPHOKINASE 160.0 U/L (34-145); MB/CK RELATIVE INDEX 4.68 (< OR =4)
[2024-12-22 09:04] LABS: ALT/SGPT 18 U/L (7.0-40); AST/SGOT 28 U/L (<34); CALCIUM LEVEL 8.0 MG/DL (8.3-10.6); CARBON DIOXIDE LEVEL 29 MMOL/L (20-31); CHLORIDE LEVEL 102 MMOL/L (98-107); CREATININE FOR GFR 0.78 MG/DL (0.55-1.30); GLOMERULAR FILTRATION RATE 73.5 (>32); MAGNESIUM LEVEL 1.7 MG/DL (1.8-2.4); PHOSPHORUS LEVEL 3.4 MG/DL (2.4-5.1); POTASSIUM SERUM 4.1 MMOL/L (3.5-5.1); SODIUM LEVEL 139 MMOL/L (136-145)
[2024-12-22] MEDS: LEVOTHYROXINE 100 MCG (0.1 MG) 5ML SDV PF (SOLUTION FORM) IV SCH (10:17)
[2024-12-22] MEDS: CEFTAROLINE FOSAMIL 400 MG in DEXTROSE 5% (D5W) ADV/MINI-BAG 50 ML IV SCH (10:34)
[2024-12-22] MEDS: LR 1,000 ML IV SCH (10:34)
[2024-12-22] MEDS: HYDROCORTISONE 100 MG/2 ML VIAL IV SCH (10:34)
[2024-12-22] MEDS: DOXYCYCLINE HYCLATE 100 MG TABLET PO SCH (10:34)
[2024-12-22 14:10] VITALS: BP 132/82; TEMP 97.5; O2SAT 96
[2024-12-22 15:40] LABS: CK-MB VALUE MASS 6.3 NG/ML (<3.6)
[2024-12-22 15:42] LABS: CPK CREATINE PHOSPHOKINASE 153.0 U/L (34-145); MB/CK RELATIVE INDEX 4.11 (< OR =4)
[2024-12-22 16:20] VITALS: BP 146/69; TEMP 98; O2SAT 97
[2024-12-22 19:17] VITALS: BP 147/70; TEMP 97.9; O2SAT 93
[2024-12-22 20:07] LABS: CK-MB VALUE MASS 5.7 NG/ML (<3.6); CPK CREATINE PHOSPHOKINASE 167.0 U/L (34-145); MB/CK RELATIVE INDEX 3.41 (< OR =4)
[2024-12-22] MEDS: POLYVINYL ALCOHOL OPHTH SOLN 15ML (LIQUITEARS) OU SCH (21:00)
[2024-12-22 23:15] VITALS: BP 156/71; TEMP 98.8; O2SAT 94
[2024-12-23] VITALS (7 sets, daily range): BP systolic 104–167; BP diastolic 60–79; TEMP 97.2–98.7; O2SAT 93–97
[2024-12-23 02:05] LABS: CK-MB VALUE MASS 4.9 NG/ML (<3.6)
[2024-12-23 02:06] LABS: CPK CREATINE PHOSPHOKINASE 190.0 U/L (34-145); MB/CK RELATIVE INDEX 2.57 (< OR =4)
[2024-12-23] MEDS: LEVOTHYROXINE 50 MCG TABLET (0.05 MG) PO SCH (08:57)
[2024-12-23] MEDS: ASPIRIN 81 MG ENTERIC TABLET PO SCH (08:57)
[2024-12-23 09:19] LABS: BASO # 0.0 10^3/uL (0.0-0.2); BASO % 0.3 % (0.0-1.0); EOS # 0.1 10^3/uL (0.0-0.5); EOS % 1.4 % (0.0-3.0); LYMPH # 1.2 10^3/uL (1.5-5.0); LYMPH % 18.4 % (24.0-44.0); MONO # 0.6 10^3/uL (0.0-0.8); MONO % 8.7 % (2.0-8.0); NEUTROPHILS # 4.7 10^3/uL (1.5-8.5); NEUTROPHILS % 70.7 % (36.0-66.0); PLATELET COUNT, AUTOMATED 218 10^3/uL (150-450)
[2024-12-23 09:30] LABS: C REACTIVE PROTEIN QUANTITATIV 0.65 MG/DL (<1.0); CALCIUM LEVEL 8.9 MG/DL (8.3-10.6); CARBON DIOXIDE LEVEL 28.0 MMOL/L (20-31); CHLORIDE LEVEL 104.0 MMOL/L (98-107); CK-MB VALUE MASS 7.3 NG/ML (<3.6); CPK CREATINE PHOSPHOKINASE 279.0 U/L (34-145); CREATININE FOR GFR 0.77 MG/DL (0.55-1.30); GLOMERULAR FILTRATION RATE 74.6 (>32); MB/CK RELATIVE INDEX 2.61 (< OR =4); POTASSIUM SERUM 4.0 MMOL/L (3.5-5.1); SODIUM LEVEL 143.0 MMOL/L (136-145)
[2024-12-23 09:49] LABS: ERYTHROCYTE SEDIMENTATION RATE 1 mm/hr (0-30)
[2024-12-23] MEDS: VENLAFAXINE 37.5 MG TAB PO SCH (10:31)
[2024-12-23] MEDS ORDERED: TALK1KIT MC (13:15)
[2024-12-23] MEDS ORDERED: NORV5TAB PO (13:15)
[2024-12-23] MEDS: amLODIPine 5 MG TAB PO ONE (13:43)
[2024-12-23] MEDS: NITROGLYCERIN 2% OINT 1 GM *U/D* PKT TOP ONE (15:25)
[2024-12-23] MEDS: FUROSEMIDE 20 MG/2 ML VIAL IV ONE (19:04)
[2024-12-23] MEDS: amLODIPine 5 MG TAB PO SCH (20:16)
[2024-12-24] VITALS: O2SAT 95
[2024-12-24 03:18] VITALS: BP 118/56; TEMP 99.3; O2SAT 92
[2024-12-24 04:28] VITALS: TEMP 98.8
[2024-12-24 07:26] VITALS: BP 105/50; TEMP 98.7; O2SAT 96
[2024-12-24 08:07] VITALS: BP 120/62
[2025-01-02] MEDS ORDERED: POLY17PO18 PO (11:18)
[2025-01-02] MEDS ORDERED: CVS50CAP PO (11:20)
== END 2024-12-24 10:45 | disposition home or self-care (01) ==
LOC: M ED 22:54 → M ED INP 22:55 → UNDOADMOB 12-22 07:02 → M ED INP 12-22 07:02 → INTOOBSV 12-22 07:02 → M PCU 12-22 14:06 → M ED INP 12-22 14:06 → M PCU 12-22 14:06 → UNDODISOB 12-24 10:45
PROVIDERS: ADMIT General Practice; ATTEND General Practice
DX: R68.0 Hypothermia, not associated with low environmental temperature (principal); I95.2 Hypotension due to drugs; T46.4X5A Adverse effect of angiotensin-converting-enzyme inhibitors, initial encounter; E87.20 Acidosis, unspecified; D72.829 Elevated white blood cell count, unspecified; R65.10 Systemic inflammatory response syndrome (SIRS) of non-infectious origin without acute organ dysfunction; R41.82 Altered mental status, unspecified; I10 Essential (primary) hypertension; I21.A1 Myocardial infarction type 2; K44.9 Diaphragmatic hernia without obstruction or gangrene; R62.7 Adult failure to thrive; R63.8 Other symptoms and signs concerning food and fluid intake; E03.9 Hypothyroidism, unspecified; R53.81 Other malaise; E86.0 Dehydration; R26.89 Other abnormalities of gait and mobility; F03.90 Unspecified dementia, unspecified severity, without behavioral disturbance, psychotic disturbance, mood disturbance, and anxiety; F32.A Depression, unspecified; R13.10 Dysphagia, unspecified; E78.5 Hyperlipidemia, unspecified; G62.9 Polyneuropathy, unspecified; R29.6 Repeated falls; Z86.711 Personal history of pulmonary embolism; Z86.73 Personal history of transient ischemic attack (TIA), and cerebral infarction without residual deficits; Z87.440 Personal history of urinary (tract) infections; Z79.899 Other long term (current) drug therapy; Z79.890 Hormone replacement therapy; Z79.82 Long term (current) use of aspirin; Z88.1 Allergy status to other antibiotic agents; Z88.5 Allergy status to narcotic agent; Z66 Do not resuscitate
CPT/HCPCS: 36415; 51701; 70450; 71045; 71275; 74170; 80047; 80048; 80053; 80076; 81001; 82330; 82550; 82553; 82803; 83605; 83690; 83735; 83880; 84100; 84145; 84439; 84443; 84484; 85025; 85610; 85652; 86140; 87040; 87486; 87581; 87633; 87798; 92610; 93005; 93041; 93306; 94760; 96365; 96366; 96367; 96375; 97161; 97165; 97530; 99285; G0378; J0692; J0712; J1720; J1938; Q9967

== ENCOUNTER → 2025-01-02 | Outpatient (CLI) | payer MEDICARE, OTHER ==
[~2025-01-02] VITALS: Ht 152.4 cm; Wt 56.1 kg
[~2025-01-02] MED LIST changes: +CVS50CAP PO; +LISI10TA22 PO; +NORV5TAB PO; +POLY17PO18 PO; +REST0.05 OU; +TALK1KIT MC
[2025-01-02 11:24] VITALS: BP 142/74; O2SAT 97
== END ==
LOC: M PAL 11:04
PROVIDERS: ATTEND Physician Assistant
DX: Z51.5 Encounter for palliative care (principal); Z66 Do not resuscitate; F03.90 Unspecified dementia, unspecified severity, without behavioral disturbance, psychotic disturbance, mood disturbance, and anxiety; Z79.891 Long term (current) use of opiate analgesic; F32.1 Major depressive disorder, single episode, moderate; R13.10 Dysphagia, unspecified; I10 Essential (primary) hypertension; G45.9 Transient cerebral ischemic attack, unspecified; Z87.440 Personal history of urinary (tract) infections; Z79.899 Other long term (current) drug therapy; Z79.82 Long term (current) use of aspirin; Z88.5 Allergy status to narcotic agent; Z88.6 Allergy status to analgesic agent